=== PATIENT | female | born 1940 | race Caucasian/White ===

== ENCOUNTER 2024-12-12 14:58 | Outpatient (REF) | payer MEDICARE, SELFPAY ==
--- OUTSIDE RECORDS SUMMARY | 2021-12-09 09:50 | XMS_ITS | Encounter Summary ---
Author Organization [facility] Address [address] [facility] [address] [place] [address] Phone Care Team Providers Care Manager Financial Planning Name Role Phone Mago Aceves MD Primary Care Provider Encounter Details Date Type Department Care Team (Late st Contact Info) Description 12/09/2021 9:50 AM EDT Hospital Encounter [facility] Urgent [facility] [address] [place] [address] Vivienne Horta FNP [address] [place] [address] [email or web address] Social History Tobacco Use Types Packs/Day Years [...] report originallycreated by Kyle Barba. Vivienne Horta CARCASS SPLITTER IMG XR LOWER EXTREMITY Gely l Result documented in this encounter Visit Diagnoses Not on filedocumented in this encounter Care Teams Manager Financial Planning Relationship Specialty Start Date End Date Mago Aceves MD [address] [place] [address] [place] [phone] PCP - General Internal Medicine 12/09/21 documented as of this encounter Additional Source Comments The information contained in this document represents components of the legal health record. It is not the complete legal health record.[facility]
--- NOTE | ~2024-12-12 | XR_ITS ---
EXAMINATION: XR CHEST CLINICAL INFORMATION: R/O Pneumonia COMPARISON: February 25, 2020 TECHNIQUE: 2 views of the chest were obtained. FINDINGS: Lungs are clear. Heart size is within normal limits. Moderate osteophytes and mild disc space narrowing is present in the thoracic spine. 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
--- OUTSIDE RECORDS SUMMARY | 2024-12-12 15:01 | XMS_ITS | Clinical Summary ---
Author Organization [address] [place] [address] Phone Care Team Providers Care Roller Inspector And Mender Name Role Phone Mago Mcneal MD Primary Care Provider [phone] Allergies Active Allergy Reactions Criticality Noted Date Comments Atorvastatin Muscular Issues 08/22/2024 [place] GI intolerance 08/22/2024 Milk Containing Products (Dairy) GI intolerance 08/22/2024 Simvastatin Muscular Issues 08/22/2024 Wheat GI intolerance 08/22/2024 Medications coenzyme Q-10 100 mg capsule Take 3 capsules (300 mg total) by mouth 1 (one) time each day. Active rosuvastatin (CRESTOR) 10 mg tablet Take 1 tablet (10 mg total) by mouth 1 (one) time each day. Active pantoprazole (PROTONIX) 40 mg EC tablet Take 1 tablet (40 mg total) by mouth 1 (one) time each day before breakfast. Active loratadine (CLARITIN) 10 mg tablet Take 1 tablet (10 mg total) by mouth 1 (one) time each day. Active cholecalciferol (D3-2000) 50 mcg (2,000 unit) capsule Take 1 capsule (2,000 Units total) by mouth 1 (one) time each day. Active donepeziL (ARICEPT) 10 mg tablet Take 1 tablet (10 mg total) by mouth at bedtime. Active multivitamin/ir on/folic acid (CERTAVITE-ANTI OXIDANT ORAL) Take 1 tablet by mouth 1 (one) time each day. Active ferrous sulfate 325 mg (65 mg elemental iron) tablet Take 1 tablet (325 mg total) by mouth 1 (one) time each day with breakfast. Active levothyroxine sodium (TIROSINT) 75 mcg capsule Take 1 capsule (75 mcg total) by mouth 1 (one) time each day. Active sertraline (ZOLOFT) 100 mg tablet Take 1 tablet (100 mg total) by mouth 1 (one) time each day. Active triamcinolone (KENALOG) 0.5 % cream Apply topically 2 (two) times a day. Active Active Problems Problem Noted Date Diagnosed Date Other constipation 08/26/2024 Fecal incontinence 08/26/2024 Encounters Date Type Department Care Team Description 11/11/2024 Telephone Gastroenterology [facility] [address] [facility] [address] [place] [address] Shiv Rincon MD provider call back 11/11/2024 Telephone Gastroenterology [facility] [address] [facility] [address] [place] [address] Sharif Small MD information needed from Last 3 Months Surgical History Surgery Date Site/Laterality Comments SECTION PROCEDURE: [place] DELIVERY ONLY HAND SURGERY PROCEDURE: HISTORICAL HAND SURGERY Medical History Medical History Date Comments High cholesterol DX:High cholest gustavo Hypothyroidism DX:Hypothyroidis m Lethargic DX:Lethargic Tiredness DX:Tiredness Depressive disorder DX:Depressiv e disorder Asthma DX:Asthma Family History Medical History Relation Name Comments Other: kidney failure Father Stroke Father Colon cancer Mother Diabetes Mother Other: heart attacks Mother Other: Other Sister Relation Name Status Comments Father Mother Sister Social History Tobacco Use Types Packs/Day Years Used Date Smoking Tobacco: Former Smokeless Tobacco: Never Alcohol Use Standard Drinks/Week Comments No 0 (1 standard drink = 0.6 oz pur e alcohol) Comments Unknown Sex and Gender Information Value Date Recorded Sex Assigned at Not on file Legal Sex Female 1:53 PM EST Gender Identity Not on file Sexual Orientation Not on file Obstetrics History Last Filed Vital Signs Vital Sign Reading Time Taken Comments Blood Pressure 126/64 08/26/2024 10:54 AM EDT Pulse 76 08/26/2024 10:54 AM EDT Temperature - - Respiratory Rate - - Oxygen Saturation - - Inhaled Oxygen Concentration - - Weight 70.8 kg (156 lb) 08/26/2024 10:54 AM EDT Height 160 cm (5' 3 ) 08/26/2024 10:54 AM EDT Body Mass Index 27.63 08/26/2024 10:54 AM EDT Plan of Treatment Health Maintenance Due Date Last Done Comments DTaP,Tdap,and Td Vaccines (1 - Tdap) 1961 Pneumococcal Vaccine: 50+ Years (1 of 1 - PCV) 1992 Zoster Vaccines (1 of 2) 1992 RSV Immunization Adult Patients (1 - 1-dose 75+ series) 2017 Depression Screening 05/06/2022 Falls Risk Assessment 05/06/2022 Medicare Annual Wellness Visit 05/06/2022 Social Influencers of Health Screening 05/06/2022 COVID-19 Vaccine (4 - 2023-2 5 season) 2024 12/01/2020, 09/04/2020, 08/14/2020 Influenza Vaccine (#1) 2025 Osteoporosis Screening (Bone Density Screening) 06/13/2032 06/13/2022 HIB Vaccines Aged Out No longer eligi ble based on patient's age to complete this topic HPV Vaccines Aged Out No longer eligi ble based on patient's age to complete this topic Hepatitis A Vaccines Aged Out No long er eligible based on patient's age to complete this topic Hepatitis B Vaccines Aged Out No long er eligible based on patient's age to complete this topic IPV Vaccines Aged Out No longer eligi ble based on patient's age to complete this topic MMR Vaccines Aged Out No longer eligi ble based on patient's age to complete this topic Meningococcal ACWY Vaccine Aged Out N o longer eligible based on patient's age to complete this topic Meningococcal B Vaccine Aged Out No l onger eligible based on patient's age to complete this topic RSV Immunization Patients Under 20 months Aged Out No longer eligible b ased on patient's age to complete this topic Varicella Vaccines Aged Out No longer eligible based on patient's age to complete this topic Procedures Procedure Name Priority Date/Time Associated Diagnosis Comments [facility] DEXA AXIAL SKELETON Routine 06/13/2022 5:33 PM EST Encounter for screening for osteoporosis from Last 3 Months or Most Recently Relevant to Health Maintenance Results * [facility] DEXA AXIAL SKELETON (06/13/2022 5:33 PM EST) Anatomical Region Laterality Modality Mammography 06/13/2022 10:0 8 AM EST Narrative 06/13/2022 5:33 PM [facility] Diagnostic Imaging Department [address] [place] [address] Patient: KEVIN SCHRADER Theresa LawrenceB./Age/Sex: 1940 - 81 - F Unit#: [id number] Location/Status: SPDIMAM/REG CLI Mnemonic[facility] Ordering Physician: MAGO MCNEAL MD Maribel Dexa Axial Skeleton - 06/13/221038 History: Low estrogen state due to menopause. History of adult fracture. Comparison: 04/29/08 Findings: Bone densitometry is performed utilizing dual energy x-ray absorptiometry (DXA) in the [employer] unit. The lumbar spine and proximal femora are evaluated in the AP projection. The FRAX questionaire was completed. The results indicate low bone mass (osteopenia), with a right femoral neck T- score of -2.4. The Z score is -0.7, indicating bone mineral density within randy l limits for age. There have been statistically significant decreases in bone mineral density in the spine (L1-2) and in the right total femur since the previous study. The detailed DEXA report will be mailed to the referring physician's office. DualFemur FRAX: 10-year Probability of Fracture: Major Osteoporotic 25.3 percent Hip 7.7 percent. IMPRESSION: Osteopenia. [id number] Dictating Physician: FLORENCE FRIEDMAN MD Electronically Signed by: FLORENCE FRIEDMAN MD Dic Date/Time: 06/13/221731 Sign date/Time: 01/17/23 1733 Procedure Note Florence Friedman MD - 06/29/2023 [facility] Diagnostic Imaging Department [address] [place] [address] [id number] Patient: KEVIN SCHRADER Theresa LawrenceB./Age/Sex: 1940 - 81 - F Unit#: [id number] Location/Status: SPDIMAM/REG CLI Mnemonic[facility] Ordering Physician: MAGO MCNEAL MD Maribel Dexa Axial Skeleton - 06/13/221038 History: Low estrogen state due to menopause. History of adult fracture. Comparison: 04/29/08 Findings: Bone densitometry is performed utilizing dual energy x-ray absorptiometry(DXA) in the [employer] unit. The lumbar spine and proximal femora areevaluated in the AP projection. The FRAX questionaire was completed. The results indicate low bone mass (osteopenia), with a right femoral neckT- score of -2.4. The Z score is -0.7, indicating bone mineral density withinnorma l limits for age. There have been statistically significant decreases inbone mineral density in the spine (L1-2) and in the right total femur sincethe previous study. The detailed DEXA report will be mailed to thereferring physician's office. DualFemur FRAX: 10-year Probability of Fracture: Major Osteoporotic 25.3 percent Hip 7.7 percent. IMPRESSION: Osteopenia. [id number] Dictating Physician: FLORENCE FRIEDMAN MD Electronically Signed by: FLORENCE FRIEDMAN MD Dic Date/Time: 06/13/22 173 Sign date/Time: 06/13/22 173 Mago Mcneal MD IMG BI PROCEDURES Final Resul t from Last 3 Months or Most Recently Relevant to Health Maintenance Insurance [employer] Advance Directives Documents on File Type Date Recorded Patient Nursing Unit Coordinator Expl anation Health Care Decision (hx) 06/26/2011 AD ABAD DIRECTIVE Health Care Decision (hx) 06/26/2011 AD ABAD DIRECTIVE Health Care Decision (hx) 06/26/2011 AD ABAD DIRECTIVE Health Care Decision (hx) 06/26/2011 AD ABAD DIRECTIVE Health Care Decision (hx) 06/26/2011 AD ABAD DIRECTIVE Health Care Decision (hx) 06/26/2011 AD ABAD DIRECTIVE Health Care Decision (hx) 06/26/2011 AD ABAD DIRECTIVE Health Care Decision (hx) 06/26/2011 AD ABAD DIRECTIVE Health Care Decision (hx) 06/26/2011 AD ABAD DIRECTIVE Health Care Decision (hx) 06/26/2011 AD ABAD DIRECTIVE Health Care Decision (hx) 06/26/2011 AD ABAD DIRECTIVE Health Care Decision (hx) 06/26/2011 AD ABAD DIRECTIVE Health Care Decision (hx) 06/26/2011 AD ABAD DIRECTIVE Health Care Decision (hx) 06/26/2011 AD ABAD DIRECTIVE Health Care Decision (hx) 06/26/2011 AD ABAD DIRECTIVE Health Care Decision (hx) 06/26/2011 AD ABAD DIRECTIVE Health Care Decision (hx) 06/26/2011 AD ABAD DIRECTIVE Health Care Decision (hx) 06/26/2011 AD ABAD DIRECTIVE Health Care Decision (hx) 06/26/2011 AD ABAD DIRECTIVE Health Care Decision (hx) 06/26/2011 AD ABAD DIRECTIVE Health Care Decision (hx) 06/26/2011 AD ABAD DIRECTIVE Care Teams Roller Inspector And Mender Relationship Specialty Start Date End Date Mago Mcneal MD [address] PCP - General Internal Medicine 07/23/19
== END 2024-12-12 14:59 | disposition home or self-care (01) ==
LOC: HO.XRAY 14:58
PROVIDERS: PCP Internal Medicine; Visit Provider Internal Medicine
DX: R05.9 Cough, unspecified (principal)
CPT/HCPCS: 71046

== ENCOUNTER → 2024-12-12 15:22 | Outpatient (BNV) | payer MEDICARE, SELFPAY | PROVIDERS: PCP Internal Medicine; Visit Provider Radiology Diagnostic Radiology | DX: M51.34 Other intervertebral disc degeneration, thoracic region (principal) | CPT/HCPCS: 71046 ==

== ENCOUNTER 2024-12-30 11:45 | Outpatient (REF) | payer MEDICARE, SELFPAY ==
--- OUTSIDE RECORDS SUMMARY | 2021-12-09 09:50 | XMS_ITS | Encounter Summary ---
Author Organization [facility] Address [address] [facility] [address] [place] [phone] Phone Care Team Providers Care Philosophy And Religion Instructor Name Role Phone Mago Aceves MD Primary Care Provider Encounter Details Date Type Department Care Team (Late st Contact Info) Description 12/09/2021 9:50 AM EDT Hospital Encounter [facility] [address] [place] [address] Vivienne Horta FNP [address] [place] [address] [email or web address] Social History Tobacco Use Types Packs/Day Years [...] report originallycreated by Kyle Barba. Vivienne Horta ADJUSTER IMG XR LOWER EXTREMITY Gely l Result documented in this encounter Visit Diagnoses Not on filedocumented in this encounter Care Teams Philosophy And Religion Instructor Relationship Specialty Start Date End Date Mago Aceves MD [address] [place] [address] [place] [address] PCP - General Internal Medicine 12/09/21 documented as of this encounter Additional Source Comments The information contained in this document represents components of the legal health record. It is not the complete legal health record.[facility]
--- OUTSIDE RECORDS SUMMARY | 2024-12-30 12:36 | XMS_ITS | Clinical Summary ---
Author Organization [address] Address [address] [place] [address] Phone Care Team Providers Care Vice President Commercial Bank Name Role Phone Mago Mcneal MD Primary Care Provider [phone] Allergies Active Allergy Reactions Criticality Noted Date Comments Atorvastatin Muscular Issues 08/22/2024 [place] GI intolerance 08/22/2024 Milk Containing Products (Dairy) [...] Department Care Team Description 11/11/2024 Telephone Gastroenterology [facility] [address] [facility] [address] [place] [address] Shiv Rincon MD provider call back 11/11/2024 Telephone Gastroenterology [facility] [address] [facility] [address] [place] [address] Sharif Small MD information needed from Last 3 Months Surgical History Surgery Date Site/Laterality Comments SECTION PROCEDURE: [place] DELIVERY ONLY HAND SURGERY PROCEDURE: HISTORICAL HAND [...] Patients (1 - 1-dose 75+ series) 2017 Falls Risk Assessment 05/06/2022 Medicare Annual Wellness Visit 05/06/2022 Social Influencers of Health Screening 05/06/2022 COVID-19 Vaccine (4 - 2023-2 5 season) 2024 12/01/2020, 09/04/2020, 08/14/2020 Depression Screening 05/28/2024 Influenza Vaccine (#1) 2025 Osteoporosis Screening (Bone [...] Procedure Name Priority Date/Time Associated Diagnosis Comments [facility] DEXA AXIAL SKELETON Routine 06/13/2022 5:33 PM EST Encounter for screening for osteoporosis from Last 3 Months or Most Recently Relevant to Health Maintenance Results * [facility] DEXA AXIAL SKELETON (06/13/2022 5:33 PM EST) Anatomical Region Laterality Modality Mammography 06/13/2022 10:0 8 AM EST Narrative 06/13/2022 5:33 PM [facility] Diagnostic Imaging Department [address] [place] [address] Patient: KEVIN SCHRADER Theresa LawrenceB./Age/Sex: 1940 - 81 - F Unit#: [id number] Location/Status: SPDIMAM/REG CLI Mnemonic/[facility] Ordering Physician: MAGO MCNEAL MD Maribel Dexa Axial Skeleton - 06/13/221038 History: Low estrogen state due to menopause. History of adult fracture. Comparison: 04/29/08 Findings: Bone densitometry is performed utilizing dual energy x-ray absorptiometry (DXA) in the [employer] unit. The lumbar spine and proximal femora [...] 25.3 percent Hip 7.7 percent. IMPRESSION: Osteopenia. [id number] Dictating Physician: FLORENCE FRIEDMAN MD Electronically Signed by: FLORENCE FRIEDMAN MD Dic Date/Time: 06/13/221731 Sign date/Time: 01/17/23 1733 Procedure Note Florence Friedman MD - 06/29/2023 [facility] Diagnostic Imaging Department [address] [place] [address] [phone] Patient: KEVIN SCHRADER Theresa LawrenceB./Age/Sex: 1940 - 81 - F Unit#: [id number] Location/Status: SPDIMAM/REG CLI Mnemonic/[facility] Ordering Physician: MAGO MCNEAL MD Maribel Dexa Axial Skeleton - 06/13/221038 History: Low estrogen state due to menopause. History of adult fracture. Comparison: 04/29/08 Findings: Bone densitometry is performed utilizing dual energy x-ray absorptiometry(DXA) in the [employer] unit. The lumbar spine and proximal femora [...] 25.3 percent Hip 7.7 percent. IMPRESSION: Osteopenia. 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
[2024-12-30 12:37] LABS: Alanine Aminotransferase 21 U/L (0-31); Albumin Level 4.2 g/dL (3.5-5.0); Alkaline Phosphatase 77 U/L (39-117); Anion Gap 13 (12-20); Aspartate Amino Transferase 31 U/L (5-31); Blood Urea Nitrogen 21 mg/dL (9-16); Calcium 9.4 mg/dL (8.4-10.2); Carbon Dioxide 27 mmol/L (22-29); Chloride 108 mmol/L (96-108); Cholesterol 183 mg/dL (<200); Estimated Glomerular Filt Rate 57; HDL Cholesterol 51 mg/dL (>40); Potassium 4.3 mmol/L (3.3-5.1); Sodium 144 mmol/L (135-145); Total Protein 6.9 g/dL (6.5-8.0); Triglycerides 146 mg/dL (<150)
== END 2024-12-30 11:46 | disposition home or self-care (01) ==
LOC: HO.LAB 11:45
PROVIDERS: PCP Internal Medicine; Visit Provider Internal Medicine
DX: H81.12 Benign paroxysmal vertigo, left ear (principal); F41.8 Other specified anxiety disorders; R15.9 Full incontinence of feces; M79.10 Myalgia, unspecified site; R19.7 Diarrhea, unspecified
CPT/HCPCS: 36415; 80053; 80061

== ENCOUNTER 2025-01-29 10:49 | Outpatient (AMB) | payer MEDICARE, SELFPAY ==
--- OUTSIDE RECORDS SUMMARY | 2021-12-09 09:50 | XMS_ITS | Encounter Summary ---
Author Organization [facility] Address [address] [facility] [address] [place] [address] Phone Care Team Providers Care Director Of Consulting Services Name Role Phone Mago Aceves MD Primary Care Provider Encounter Details Date Type Department Care Team (Late st Contact Info) Description 12/09/2021 9:50 AM EDT Hospital Encounter [facility] [address] [place] [address] Vivienne Horta FNP [address] [place] [address] [email or web address] Social History Tobacco Use Types Packs/Day [...] report originallycreated by Kyle Barba. Vivienne Horta SALES REVIEW CLERK IMG XR LOWER EXTREMITY Gely l Result documented in this encounter Visit Diagnoses Not on filedocumented in this encounter Care Teams Director Of Consulting Services Relationship Specialty Start Date End Date Mago Aceves MD [address] [place] [address] [place] [address] PCP - General Internal Medicine 12/09/21 documented as of this encounter Additional Source Comments The information contained in this document represents components of the legal health record. It is not the complete legal health record.[facility]
--- NOTE | 2025-01-29 10:55 | MHC.OFFVIS ---
Intake Visit Reasons: 3 Months Allergies codeine (CODEINE) Adverse Reaction (Mild, Unverified 01/29/25 11:01) UPSET STOMACH dairy Allergy (Unknown, Uncoded 01/29/25 11:01) Unknown Medication List - Last Reconciled 01/29/25 by Allison Hutson CNP cholecalciferol (vitamin D3) 50 mcg PO DAILY coenzyme Q10 30 mg PO DAILY donepezil 10 mg PO DAILY levothyroxine 75 mcg PO DAILY pantoprazole 40 mg PO DAILY rosuvastatin 10 mg PO DAILY sertraline 150 mg PO DAILY HPI Comments Details: Saw PCP a few times for some respiratory issues. Still having pain all over, especially in legs. Legs feel weak, off balance at times, and has had few minor falls. Using cane outside of house. She was referred to pain management at her last appointment, but was not contacted for an appointment. She tried increased dose of donepezil, but had hallucinations and dizziness, and stopped medication. Memory was about the same. Forgetful and needs to write things down. She says her house is a mess and she has been unable to clean it or do therapeutic case manager for the last few months, but her daughter helps her on the weekends. She has always had some trouble keeping up with therapeutic case manager, and had assistnace in the past but was stopped due to cost. She was asking about increasing dose of sertraline. A lot of pain in her legs and ankles. Aleve as needed helped. Forgetful and misplacing things.? Previously had a lot of pain in legs for few weeks after sensory exam. Did not like how nortriptyline made her feel. Some burning pain in legs and feet. Aleve twice a day helped some. Forgetful. Motivation not so good. 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 Feels great one day every other month. She felt memory improved before after stopping duloxetine and amitriptyline. Tried multiple medications in the past including gabapentin, pregabalin, Abilify, paroxetine and reported side effects. Was getting help from [facility] to deal with mice in home and group noticed some issues with memory. She felt memory was not as sharp, loses train of thought, and forgetful. Hx of multiple falls over 10+ years. Previously fell hit left side of head. She tripped and fell and hit edge of [employer]. Tripped on high step on 2021 and fell also. She had multiple falls over the last 10 years. On multiple occasions she is tripped on her own feet and falling down hitting her head on multiple occasions and on one occasion having a comminuted fracture of the hand in 2009. For 10 years she has had complaints of sharp jabbing pains in her feet and legs and was diagnosed as neuropathy in 2019. She declined to have nerve conduction studies done. Most of her falls occurs when she turns. As she is turning, she trips and twists one leg over the other. Knees to feet bilaterally feel hot and cold at times and there is some degree of numbness. [facility] Medical History (Updated 01/29/25 @ 11:20 by Allison Hutson CNP) Schatzki's ring Iron deficiency anemia Osteoarthritis GERD (gastroesophageal reflux disease) H/O multiple concussions Hypothyroidism MCI (mild cognitive impairment) Frequent falls Depression Peripheral neuropathy Review of Systems Const Denies chills, Denies daytime sleepiness, Reports difficulty sleeping, Denies fatigue, Denies fever(s), Denies frequent falls, Denies headache(s), Denies increased appetite, Denies poor appetite, Denies snoring, Denies weakness, Denies weight gain and Denies weight loss Eyes Denies loss of vision ENT Denies vertigo, Denies dizziness, Denies headache(s) and Reports neck pain Card Denies chest pain at rest, Denies chest pain with activity, Denies syncope, Denies leg edema, Denies palpitations, Denies dyspnea and Denies dyspnea on exertion Resp Denies cough, Denies dyspnea, Denies dyspnea on exertion and Denies snoring GI Denies abdominal pain, Denies constipation, Denies heartburn, Denies diarrhea and Denies nausea Denies urinary frequency, Denies urinary incontinence and Denies urinary urgency Musc Denies abnormal gait, Reports back pain, Reports myalgias, Reports arthralgias, Reports neck pain, Reports numbness and Reports tingling Neuro Denies abnormal gait, Denies vertigo, Denies dizziness, Denies syncope, Denies frequent falls, Denies headache(s), Denies lack of coordination, Denies loss of vision, Reports memory loss, Reports numbness, Denies Other visual disturbances, Denies restless legs, Denies seizure-like activity, Reports tingling, Denies paresthesias, Denies tremor(s) and Denies weakness Psych Denies anxiety, Denies depression, Denies auditory hallucinations, Reports memory loss and Denies visual hallucinations Endo Denies fatigue and Denies palpitations Physical Exam Const Other: General Appearance:? normal, in no acute distress. Heart:? S1, S2 normal, no murmurs. Lungs:? clear anteriorly and posteriorly. Musculoskeletal:? normal. Extremities:? no edema. Psych:? alert, as below. Neuro Other: Abnormal Neurological Findings:?Submaximal effort on voluntary motor testing has improved. Declining sensory exam, previously loss of vibration sensation below the lower one third of the tibia and decrease pinprick sensation distal to the midtorsal level. Absent ankle reflexes. Walking with cane. MMSE 28/30? Mental Status: alert, as below. Cranial Nerves: Pupils are equal, round, and reactive to light. External ocular muscles are intact. Visual hou are full, no ptosis. Face is symmetrical, no facial weakness or droop. Facial sensations are normal. Tongue protrudes in midline. Palate elevates symmetrically. Shoulder shrugging is normal Motor Examination: As above, absent ankle reflexes. Sensory Exam: As above, declines. Coordination: No ataxia. No titubation. Gait Exam: With cane. Cerebellar Signs: [id number] is okay. Extrapyramidal System: No tremor, rigidity with normal facial expressions. No bradykinesia. No bradyphrenia. Normal arm swing and posture. No propulsion or retropulsion. Speech: Normal. MMSE Level of Consciousness: Alert. Orientation: Knows correct year, month, date, day and season. Knows correct city, county and state. Knows correct location and floor. Registration: Able to register 3 objects. Attention: Serial 7's performed accurately to 79. Recall: Able to recall 3 out of 3 objects. Language: Normal spontaneous speech, fluency, repetition, naming, comprehension, reading, and writing. Total Score: 28/30. Results Reviewed Results Reviewed: [facility] head at [facility] was negative. labs showed anemia. 02/28/23 EEG- WNL 10/17/22 Moderately severe axonal sensory and motor peripheral neuropathy. Normal EMG in the left L4-S1 innervated muscles. 03/25/23 CT brain shows no change in left parietal hyperdense lesion Assessment & Plan Assessment & Plan (1) MCI (mild cognitive impairment): Code(s): G31.84 - Mild cognitive impairment of uncertain or unknown etiology Category: Medical Plan: She had side effects with donepezil 10mg and medication was stopped. She was asking about increasing dose of sertraline. She has already increased dose of medication on her own in the past to current dose of 150mg. She was advised dose would not be increased, referral to psychiatry placed for medication management or may discuss with PCP. Continue sertraline 100mg 1.5 tablets daily. Stay physically and socially active. (2) Peripheral neuropathy: Code(s): G62.9 - Polyneuropathy, unspecified Category: Medical Qualifiers: Peripheral neuropathy type: polyneuropathy, unspecified Qualified Code(s): G62.9 - Polyneuropathy, unspecified Plan: She was referred to pain clinic at last appointment, but did not hear back for appointment and referral was placed again. (3) Anxiety and depression: Code(s): F41.9 - Anxiety disorder, unspecified; F32.A - Depression, unspecified Category: Medical Plan Meds tried: Gabapentin, pregabalin (dizziness), duloxetine, abilify, paroxetine, amitriptyline, nortriptyline Meds tried: donepezil Orders: Referrals Pain Management Referral G62.9 - Polyneuropathy, unspecified Psychiatry Referral F32.A - Depression, unspecified, F41.9 - Anxiety disorder, unspecified, G31.84 - Mild cognitive impairment of uncertain or unknown etiology Medications: New sertraline 150 mg (1.5 x 100 mg) PO DAILY 135 tabs 1RF 90 days Coding Level of Care Code Est Pt Level 4 (00864) Diagnoses MCI (mild cognitive impairment) G31.84 Peripheral polyneuropathy G62.9 Peripheral neuropathy type: polyneuropathy, unspecified Anxiety and depression F41.9; F32.A
--- OUTSIDE RECORDS SUMMARY | 2025-01-29 12:26 | XMS_ITS | Clinical Summary ---
Author Organization [address] Address [address] [place] [address] Phone Care Team Providers Care Assistant Farm Operations Manager Name Role Phone Mago Mcneal MD Primary Care Provider [phone] Allergies Active Allergy Reactions Criticality Noted Date Comments Atorvastatin Muscular Issues 08/22/2024 [place] GI intolerance 08/22/2024 Milk Containing Products (Dairy) [...] Department Care Team Description 11/11/2024 Telephone Gastroenterology [facility] [address] [facility] [address] [place] [address] Shiv Rincon MD 11/11/2024 Telephone Gastroenterology - [place] 175 [facility] 175 [facility] [address] [place] [address] Sharif Small MD from Last 3 Months Surgical History Surgery Date Site/Laterality Comments SECTION PROCEDURE: [place] DELIVERY ONLY HAND SURGERY PROCEDURE: HISTORICAL HAND [...] Procedure Name Priority Date/Time Associated Diagnosis Comments [facility] DEXA AXIAL SKELETON Routine 06/13/2022 5:33 PM EST Encounter for screening for osteoporosis from Last 3 Months or Most Recently Relevant to Health Maintenance Results * [facility] DEXA AXIAL SKELETON (06/13/2022 5:33 PM EST) Anatomical Region Laterality Modality Mammography 06/13/2022 10:0 8 AM EST Narrative 06/13/2022 5:[address] [facility] Diagnostic Imaging Department [address] [place] [id number] Patient: KEVIN SCHRADER Theresa LawrenceB./Age/Sex: 1940 - 81 - F Unit#: [id number] Location/Status: SPDIMAM/REG CLI Mnemonic[facility] Ordering Physician: MAGO MCNEAL MD Maribel Dexa Axial Skeleton - 06/13/22 - 1039 History: Low estrogen state due to menopause. History of adult fracture. Comparison: 04/29/08 Findings: Bone densitometry is performed utilizing dual energy x-ray absorptiometry (DXA) in the [employer] unit. The lumbar spine and proximal femora [...] 25.3 percent Hip 7.7 percent. IMPRESSION: Osteopenia. [id number] Dictating Physician: FLORENCE FRIEDMAN MD Electronically Signed by: FLORENCE FRIEDMAN MD Dic Date/Time: 06/13/221731 Sign date/Time: 01/17/23 1733 Procedure Note Florence Friedman MD - 06/29/2023 [facility] Diagnostic Imaging Department [address] [place] [address] [id number] Patient: KEVIN SCHRADER Theresa Salcedo./Age/Sex: 1940 - 81 - F Unit#: [id number] Location/Status: SPDIMA/REG CLI Mnemonic[facility] Ordering Physician: MAGO MCNEAL MD [facility] Dexa Axial Skeleton - 06/13/221038 History: Low estrogen state due to menopause. History of adult fracture. Comparison: 04/29/08 Findings: Bone densitometry is performed utilizing dual energy x-ray absorptiometry(DXA) in the [employer] unit. The lumbar spine and proximal femora [...] 25.3 percent Hip 7.7 percent. IMPRESSION: Osteopenia. 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
--- OUTSIDE RECORDS SUMMARY | 2025-01-29 12:26 | XMS_ITS | Clinical Summary ---
Author Organization [facility] Address [address] [address] Phone Care Team Providers Care Valet Parker Name Role Phone Mago Aceves MD Primary Care Provider Allergies No known active allergies Medications ferrous sulfate 325 mg (65 mg kaguyuk iron) EC tablet Take 1 tablet by mouth daily. 2 Active gabapentin (NEURONTIN) 100 MG capsule Take 200 mg by mouth 3 (three) times a day. 2 Active levothyroxine (SYNTHROID, LEVOTHROID) 75 MCG tablet Take 75 mcg by mouth daily. 2 Active CERTAVITE-ANTIO XIDANT 18-400 mg-mcg Tab Take 1 tablet by mouth daily. 2 Active pantoprazole (PROTONIX) 40 MG tablet Take 40 mg by mouth daily. 2 Active rosuvastatin (CRESTOR) 10 MG tablet Take 10 mg by mouth daily. 2 Active sertraline (ZOLOFT) 100 MG tablet Take 200 mg by mouth daily. 2 Active naproxen (NAPROSYN) 500 MG tablet Take 1 tablet (500 mg total) by mouth 2 (two) times a day for 3 days. Then twice daily as needed for pain, inflammation 20 tablet 2 Active Active Problems No known active problems Immunizations Immunization Administration Dates Next Due COVID-19 (Pre-03/19) Moderna Vaccine, mRNA, PF 0 12/01/2020 Social History Tobacco Use Types Packs/Day Years [...] on file Sexual Orientation Not on file Last Filed Vital Signs Vital Sign Reading Time Taken Comments Blood Pressure 111/68 12/09/2021 9:37 AM EDT Pulse 71 12/09/2021 9:37 AM EDT Temperature 36.7 C (98 F) 12/09/2021 9:37 AM EDT Respiratory Rate 16 12/09/2021 9:37 AM EDT Oxygen Saturation 97% 12/09/2021 9:37 AM EDT Inhaled Oxygen Concentration - - Weight - - Height - - Body Mass Index - - Plan of Treatment Health Maintenance Due Date Last Done Comments Adult Td,Tdap Booster 1940 TSH LEVEL 1940 DEPRESSION SCREENING 1954 PNEUMOCOCCAL VACCINES (50+ years) (1 of 1 - PCV) 1992 ZOSTER VACCINES (1 of 2) 1992 OSTEOPOROSIS SCREENING INITI AL (ONE-TIME) 12/25/2007 RSV VACCINE (1 - 1-dose 75+ series) 2017 COVID-19 VACCINE (4 - 2023-2 5 season) 2024 12/01/2020, 09/04/2020, 08/14/2020 HEPATITIS A VACCINES Aged Out No long er eligible based on patient's age to complete this topic HIB VACCINES Aged Out No longer eligi ble based on patient's age to complete this topic MENINGOCOCCAL VACCINES (ACWY) Aged Out No longer eligible based on patient's age to complete this topic MENINGOCOCCAL VACCINES (B) Aged Out N o longer eligible based on patient's age to complete this topic Medical Devices Not on file Insurance [employer] RE[employer] RE[employer] RE[employer] Care Teams Valet Parker Relationship Specialty Start Date End Date Mago Aceves MD [address] [place] [address] [place] [address] PCP - General Internal Medicine 12/09/21 Additional Source Comments The information contained in this document represents components of the legal health record. It is not the complete legal health record.[facility]
== END 2025-01-29 11:28 | disposition home or self-care (01) ==
PROVIDERS: PCP Internal Medicine; Referring Provider Internal Medicine; Visit Provider Registered Nurse
DX: G31.84 Mild cognitive impairment of uncertain or unknown etiology (principal); G62.9 Polyneuropathy, unspecified; F41.9 Anxiety disorder, unspecified; F32.A Depression, unspecified
CPT/HCPCS: 99214

== ENCOUNTER → 2025-01-29 10:49 | Outpatient (BNVA) | payer MEDICARE, SELFPAY | PROVIDERS: PCP Internal Medicine; Referring Provider Internal Medicine; Visit Provider Registered Nurse | DX: G31.84 Mild cognitive impairment of uncertain or unknown etiology (principal); G62.9 Polyneuropathy, unspecified; F41.9 Anxiety disorder, unspecified; F32.A Depression, unspecified | CPT/HCPCS: 99212 ==

== ENCOUNTER 2025-02-19 09:25 | Outpatient (AMB) | payer MEDICARE, SELFPAY ==
--- OUTSIDE RECORDS SUMMARY | 2021-12-09 09:50 | XMS_ITS | Encounter Summary ---
Author Organization [facility] Address [address] [facility] [address] [place] [address] Phone Care Team Providers Care Academic Coordinator Name Role Phone Mago Aceves MD Primary Care Provider Encounter Details Date Type Department Care Team (Late st Contact Info) Description 12/09/2021 9:50 AM EDT Hospital Encounter [facility] [address] [place] [address] Vivienne Horta FNP [address] [place] [address] [email or web address] Social History Tobacco Use Types Packs/Day Years Used Date Smoking Tobacco: Never Assessed Education Answer Date Recorded Are you interested in more education? Not on hunter e 09/23/2022 Are you concerned about learning? Not on file 09/23/2022 No 09/23/2022 No 09/23/2022 Digital Access Answer Date Recorded No 10/22/2022 No 10/22/2022 Reliable internet access at home? Not on file 10/22/2022 Device with a working camera? Not on file Comments Unknown Sex and Gender Information Value Date Recorded Sex Assigned at Not on file Legal Sex Female 6:04 AM EDT Gender Identity Not on file Sexual Orientation Not on file documented as of this encounter Plan of Treatment Not on file documented as of this encounter Procedures Procedure Name Priority Date/Time Associated Diagnosis Comments XR FOOT 3 OR MORE VIEWS (LEFT) Urgent/patient waiting 12/09/2021 10:01 AM EDT Closed nondisplaced fracture of fifth metatarsal bone of left foot, initial encounter documented in this encounter Results * XR FOOT 3 OR MORE VIEWS (LEFT) (12/09/2021 10:01 AM EDT) Anatomical Region Laterality Modality Foot Left Computed Radiogr aphy 12/09/2021 10:0 3 AM EDT Impressions 12/09/2021 11:12 AM EDT Acute minimally displaced fracture of fifth metatarsal diaphysis. ATTESTATION: I, Dr. Soraida Maciel as teaching physician, have reviewed the images for this case and if necessary edited the report originally created by Kyle Barba. Narrative 12/09/2021 11:12 AM EDT XR FOOT 3 OR MORE VIEWS (LEFT) COMPARISON: None. FINDINGS: Acute minimally displaced fracture of fifth diaphysis with mild adjacent soft tissue swelling. Diffusely osteopenic bones. Bidirectional calcaneal enthesophytes. Procedure Note Soraida Maciel MD - 12/09/2021 XR FOOT 3 OR MORE VIEWS (LEFT) COMPARISON: None. FINDINGS: Acute minimally displaced fracture of fifth diaphysis with mild adjacentsoft tissue swelling. Diffusely osteopenic bones. Bidirectional calcanealenthesophytes. IMPRESSION: Acute minimally displaced fracture of fifth metatarsal diaphysis. ATTESTATION: Dr. Soraida Tijerina as teaching physician, have reviewedthe images for this case and if necessary edited the report originallycreated by Kyle Barba. Vivienne Horta NURSE OUTREACH CASE MANAGER IMG XR LOWER EXTREMITY Gely l Result documented in this encounter Visit Diagnoses Not on filedocumented in this encounter Care Teams Academic Coordinator Relationship Specialty Start Date End Date Mago Aceves MD [address] [place] [address] [place] [address] PCP - General Internal Medicine 12/09/21 documented as of this encounter Additional Source Comments The information contained in this document represents components of the legal health record. It is not the complete legal health record.[facility]
--- NOTE | 2025-02-19 09:27 | MHC.OFFVIS ---
Vital Signs 02/19/25 09:38 Height 5 ft 3 in Weight 163 lb BMI 28.9 BP 137/89 Blood Pressure Location Lt brachial Position Sitting Pulse 74 Pulse Source Pulse Oximeter Pulse Oximetry (%) 98 Oxygen Delivery Method Room Air Intake Visit Reasons: Polyneuropathy Table Tender Sludge Required: No Accompanied by: Self / Same As Patient Allergies atorvastatin Allergy (Unknown, Verified 02/19/25 10:05) myalgia simvastatin Allergy (Unknown, Verified 02/19/25 10:05) myalgia codeine (CODEINE) Adverse Reaction (Mild, Verified 02/19/25 10:05) UPSET STOMACH donepezil Adverse Reaction (Unknown, Verified 02/19/25 10:05) Confusion dairy Allergy (Unknown, Uncoded 01/29/25 11:01) Unknown HPI Comments Details: The patient is an 84-year-old female presenting with polyneuropathy, frequent falls and worsening pain. The pain is described as pins and needles, numbness, coldness, and burning, primarily affecting the legs from the knees down, extending to the hips and hands. The symptoms have been present for about three years, with heat and Aleve providing some relief. The patient has a history of frequent falls attributed to peripheral neuropathy and unknown causes, leading to bruising and injuries such as a broken hand and wrist in November, which required hospitalization and most recent fall last week when she chose not to go to ER or notify her PCP. She reports difficulty with balance and performing daily activities, such as house chores and taking out the trash, due to her condition. The patient has a history of osteoarthritis, iron deficiency anemia, depression, and multiple concussions. She also has a history of smoking, which she quit 50 years ago, and denies alcohol use. The patient has diabetes mellitus, which she reports may be slightly elevated currently. She has osteoporosis and degenerative arthritis, with a history of herniated discs diagnosed nearly 20 years ago. The patient experiences respiratory issues, particularly during the summer months, and has an elongated twisted colon causing gastrointestinal problems. She reports urinary incontinence and has been advised to seek personal care assistance services. She lives alone and has been having difficulties to go for walk with her dog due to recurrent falls and pain. - Onset: Pain has been present for about three years. - Quality: Described as pins and needles, numbness, coldness, aching, sharp and burning. - Location: Primarily from the knees down, extending to the hips and hands. Lower back pain. - Exacerbating factors: Activities such as washing dishes, walking, changing positions, prolonged standing or sitting. - Relieving factors: Heat and Aleve provide some relief. - Affect: Pain impacts mood, causing depression and affecting daily activities. - Analgesia: Multiple medications tried, including gabapentin, pregabalin, duloxetine, and others, with limited success. - Adverse Effects: Medications caused dizziness, nightmares, and feeling loopy. - Activities of Daily Living: Pain interferes with house chores and balance, leading to frequent falls. - Aberrant Drug Related Behaviors: No aberrant behaviors reported. [facility] Medical History Dorsalgia Hypercholesterolemia Lichen sclerosus of vulva Arthritis Rheumatism Nephrolithiasis Colitis Schatzki's ring Iron deficiency anemia Osteoarthritis GERD (gastroesophageal reflux disease) H/O multiple concussions Hypothyroidism MCI (mild cognitive impairment) Frequent falls Depression Peripheral neuropathy Surgical History History of cataract surgery H/O: section Social History Household Members: None and Other Alcohol intake: never Patient Tobacco Use Status: Former Tobacco user Tobacco use type: Cigarette Cigarette Packs Per Day: 1 Current occupational status: retired Review of Systems Const Details: - Neurological: Reports pins and needles sensation, weakness, numbness, and tingling in legs and feet. - Musculoskeletal: Reports hip pain, degenerative arthritis, and history of herniated discs. - Genitourinary: Reports urinary incontinence especially with severe pain. - Psychiatric: Reports depression and memory issues. All systems reviewed & are unremarkable except as noted in HPI and below Physical Exam Vital Signs: Last Vital Signs Pulse 74 02/19/25 09:38 BP 137/89 02/19/25 09:38 Pulse Ox 98 02/19/25 09:38 Oxygen Delivery Method Room Air 02/19/25 09:38 BMI result Body Mass Index 28.9 General: Appears afebrile. Alert and oriented. Mood and affect appropriate. Follows and participates in conversation appropriately. Respiratory effort is unlabored. No cough. Able to transition from sit to stand unassisted but uses chair arms and jacobsen to hold on too. Ambulates with slow, antalgic gait. No assistive devices used today. General: Yes no CVA tenderness Back/Spine/Pelvis Other: Limited lumbar ROM due to pain. Lumbar flexion and extension reproduces mild to moderate pain. Demonstrates 5/5 strength of quadriceps bilaterally as well as flexion/dorsiflexion of bilateral feet against resistance. 2+ pedal pulses bilaterally. Straight leg rise with dorsiflexion positive bilaterally. +1 patellar and diminished achilles reflexes bilaterally. Facet loading test positive bilaterally. Luiz sign, Gera?s, Pelvic compression and Stinchfield tests are negative bilaterally. No groin pain with I/E hip rotations. Valsalva maneuver positive. Back: no CVA tenderness Cervical Spine: cervical ROM normal, cervical muscular tenderness and No Cervical spine tenderness Thoracic/Lumbar Spine: thoracic and lumbar spine normal to inspection, No Thoracic/lumbar spine scar(s), Lasegue's sign positive bilateral and diffuse, paraspinal muscle tenderness, thoraco-lumbar ROM limited, No thoracic spinal tenderness and lumbar spinal tenderness at L4 and at L5 Sacroiliac joints: bilaterally nontender Extrem General: Yes capillary refill normal, Yes no clubbing, cyanosis or edema and Yes no calf tenderness Results Reviewed Results Reviewed: No imaging results are available for review. Assessment & Plan Assessment & Plan (1) Peripheral neuropathy: Code(s): G62.9 - Polyneuropathy, unspecified Category: Medical Qualifiers: Peripheral neuropathy type: polyneuropathy, unspecified Qualified Code(s): G62.9 - Polyneuropathy, unspecified (2) Urinary incontinence: Code(s): R32 - Unspecified urinary incontinence Category: Medical (3) Lumbar radiculopathy: Code(s): M54.16 - Radiculopathy, lumbar region Category: Medical (4) Chronic low back pain: Code(s): M54.50 - Low back pain, unspecified; G89.29 - Other chronic pain Category: Medical (5) Lumbosacral spondylosis: Code(s): M47.817 - Spondylosis without myelopathy or radiculopathy, lumbosacral region Category: Medical Plan The plan includes obtaining lumbar MRI to evaluate the cause of back, leg and feet pain accompanied with frequent falls and urinary incontinence, ensuring no underlying spinal issues are contributing to these symptoms. The patient will be considered for Qutenza, a capsaicin 8% topical system, pending insurance approval, to manage neuropathic pain. Additionally, the patient is advised to seek personal care assistance services to aid with daily activities and prevent falls. All questions and concerns have been answered and patient agreed with the treatment plan. Follow up for MRI results and sooner as needed. Patient was informed and verbally consented to the use of an ambient scribe for clinic note documentation during this visit. Orders: Orders XR lumbar spine 4V min Today G62.9 - Polyneuropathy, unspecified, G89.29 - Other chronic pain, M47.817 - Spondylosis without myelopathy or radiculopathy, lumbosacral region, M54.16 - Radiculopathy, lumbar region, M54.50 - Low back pain, unspecified MR lumbar spine wo con 02/19/25 G62.9 - Polyneuropathy, unspecified, G89.29 - Other chronic pain, M47.817 - Spondylosis without myelopathy or radiculopathy, lumbosacral region, M54.16 - Radiculopathy, lumbar region, M54.50 - Low back pain, unspecified, R32 - Unspecified urinary incontinence Coding Level of Care Code New Pt Level 4 (46483) Diagnoses Peripheral polyneuropathy G62.9 Peripheral neuropathy type: polyneuropathy, unspecified Urinary incontinence R32 Lumbar radiculopathy M54.16 Chronic low back pain M54.50; G89.29 Lumbosacral spondylosis M47.817
[2025-02-19 09:38] VITALS: BP 137/89; PULSE 74; O2SAT 98; BMI 28.9
--- OUTSIDE RECORDS SUMMARY | 2025-02-19 10:37 | XMS_ITS | Clinical Summary ---
Author Organization [facility] Address [address] [facility] [address] [place] [id number] Phone Care Team Providers Care Aerospace Engineer Officer Armament Name Role Phone Mago Aceves MD Primary Care Provider Allergies No known active allergies Medications ferrous sulfate 325 mg (65 mg [place] iron) EC tablet Take 1 tablet by [...] VACCINE (1 - 1-dose 75+ series) 2017 INFLUENZA VACCINE (#1) 2024 COVID-19 VACCINE (4 - 2024-2 6 season) 2025 12/01/2020, 09/04/2020, 08/14/2020 HEPATITIS A VACCINES Aged [...] topic Medical Devices Not on file Insurance [employer] Care Teams Aerospace Engineer Officer Armament Relationship Specialty Start Date End Date Mago Aceves MD [address] [place] [address] [place] [address] PCP - General Internal Medicine 12/09/21 Additional Source Comments The information contained in this document represents components of the legal health record. It is not the complete legal health record.[facility]
--- OUTSIDE RECORDS SUMMARY | 2025-02-19 10:37 | XMS_ITS | Clinical Summary ---
Author Organization [address] Address [address] [place] [address] Phone Care Team Providers Care Pvc Loader Name Role Phone Mago Mcneal MD Primary Care Provider [phone] Allergies Active Allergy Reactions Criticality Noted Date Comments Atorvastatin Muscular Issues 08/22/2024 [place] GI intolerance 08/22/2024 Milk Containing Products (Dairy) [...] Date Other constipation 08/26/2024 Fecal incontinence 08/26/2024 Surgical History Surgery Date Site/Laterality Comments SECTION PROCEDURE: ID DELIVERY ONLY HAND SURGERY PROCEDURE: HISTORICAL HAND [...] 05/06/2022 Social Influencers of Health Screening 05/06/2022 Depression Screening 05/28/2024 COVID-19 Vaccine (4 - 5-2 6 season) 2025 12/01/2020, 09/04/2020, 08/14/2020 Influenza Vaccine (#1) 2025 [...] Procedure Name Priority Date/Time Associated Diagnosis Comments [facility] DEXA AXIAL SKELETON Routine 06/13/2022 5:33 PM EST Encounter for screening for osteoporosis from Last 3 Months or Most Recently Relevant to Health Maintenance Results * [facility] DEXA AXIAL SKELETON (06/13/2022 5:33 PM EST) Anatomical Region Laterality Modality Mammography 06/13/2022 10:0 8 AM EST Narrative 06/13/2022 5:33 PM EST [facility] Diagnostic Imaging Department [address] [place] [id number] Patient: KEVIN SCHRADER D.O.B./Age/Sex: 1940 - 81 - F Unit#: [id number] Location/Status: SPDIMAM/REG CLI Mnemonic/[facility] Ordering Physician: MAGO MCNEAL MD Maribel Dexa Axial Skeleton - 06/13/22 103 History: Low estrogen state due to menopause. History of adult fracture. Comparison: 04/29/08 Findings: Bone densitometry is performed utilizing dual energy x-ray absorptiometry (DXA) in the [employer] with Homer unit. The lumbar spine and proximal femora [...] 25.3 percent Hip 7.7 percent. IMPRESSION: Osteopenia. [id number] Dictating Physician: FLORENCE FRIEDMAN MD Electronically Signed by: FLORENCE FRIEDMAN MD Dic Date/Time: 06/13/221731 Sign date/Time: 06/13/221732 Procedure Note Florence Friedman MD - 06/29/2023 [facility] Diagnostic Imaging Department [address] [place] [address] Patient: KEVIN SCHRADER /Age/Sex: 1940 - 81 - F Unit#: [id number] Location/Status: SPDIMAM/REG CLI Mnemonic/Ordering Site: [facility] Ordering Physician: MAGO MCNEAL MD Maribel Dexa Axial Skeleton - 06/13/22 - 103 History: Low estrogen state due to menopause. History of adult fracture. Comparison: 04/29/08 Findings: Bone densitometry is performed utilizing dual energy x-ray absorptiometry(DXA) in the [employer] with Homer unit. The lumbar spine and proximal femora [...] 25.3 percent Hip 7.7 percent. IMPRESSION: Osteopenia. 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
== END 2025-02-19 10:11 | disposition home or self-care (01) ==
PROVIDERS: PCP Internal Medicine; Visit Provider Nurse Practitioner Family
DX: G62.9 Polyneuropathy, unspecified (principal); R32 Unspecified urinary incontinence; M54.16 Radiculopathy, lumbar region; M54.50 Low back pain, unspecified; G89.29 Other chronic pain; M47.817 Spondylosis without myelopathy or radiculopathy, lumbosacral region
CPT/HCPCS: 99204

== ENCOUNTER → 2025-02-19 09:25 | Outpatient (BNVA) | payer MEDICARE, SELFPAY | PROVIDERS: PCP Internal Medicine; Visit Provider Nurse Practitioner Family | DX: M47.817 Spondylosis without myelopathy or radiculopathy, lumbosacral region (principal); M54.50 Low back pain, unspecified; M54.16 Radiculopathy, lumbar region; R32 Unspecified urinary incontinence; G62.9 Polyneuropathy, unspecified; G89.29 Other chronic pain | CPT/HCPCS: 99202 ==